=== PATIENT | female | born 1955 | race Caucasian/White ===

== ENCOUNTER 2018-01-28 07:37 | Observation (INO) | payer BC ==
[2018-01-28 08:32] LABS: #Eosinphils 0.1 thou/uL (0.0-0.7); #Lymphocytes 2.3 thou/uL (1.20-3.40); #Monocytes 0.4 thou/uL (0.11-0.59); #Neutrophils 6.6 thou/uL (1.40-6.50); %Basophils 0.5 % (0.0-1.0); %Lymphocytes 24.2 % (21.0-51.0); %Monocytes 4.6 % (0.0-10.0); %Neutrophils 69.7 % (42.0-75.0); Hemoglobin 13.5 g/dL (12.0-16.0); Mean Corpuscular Hemoglobin 27.9 pg (27.0-31.0); Mean Corpuscular Volume 84.5 fL (78.0-98.0); Mean Platelet Volume 7.9 fL (7.4-10.4); Platelet Count 245 thou/uL (130-400); RBC Distribution Width 12.8 % (11.5-14.5); Red Blood Cell (RBC) Count 4.86 mill/uL (4.20-5.40); White Blood Cell (WBC) Count 9.5 thou/uL (4.8-10.8)
[2018-01-28 08:52] LABS: ALT (SGPT) 25 U/L (8-55); AST (SGOT) 21 U/L (5-34); Albumin 4.6 g/dL (3.4-4.8); Alkaline Phosphatase 89 U/L (40-150); Anion Gap 14 mmol/L (10-20); BUN (Urea Nitrogen) 19 mg/dL (9.8-20.1); Bilirubin, Total 0.3 mg/dL (0.2-1.2); Calc. Creatinine Clearance 0 mL/min (70-130); Calcium 9.9 mg/dL (7.8-10.44); Carbon Dioxide 21 mmol/L (23-31); Chloride 107 mmol/L (98-107); Estimated GFR-MDRD 79; Glucose 98 mg/dL (80-115); Potassium 3.9 mmol/L (3.5-5.1); Protein, Total 7.6 g/dL (6.0-8.3); Sodium 138 mmol/L (136-145)
[2018-01-28] MEDS ORDERED: Pantoprazole 40 MG VIAL ONE (09:40)
[2018-01-28 09:48] LABS: Bilirubin Negative (Negative); Blood, Urine Negative (Negative); Clarity CLEAR (Clear); Glucose, Urine (Dipstick) Negative (Negative); Leukocyte Trace (Negative); Nitrite Negative (Negative); Protein, Urine (Dipstick) Negative (Neg-Trace); Specific Gravity, Urine 1.007 (1.002-1.036); Urobilinogen 0.2 mg/dL (0.2-1.0)
--- NOTE | 2018-01-28 09:49 | CT ---
CT ABDOMEN AND PELVIS WITH IV CONTRAST: HISTORY: A 62-year-old female with abdominal pain. Blood in the stools. FINDINGS: The lung bases are clear. The liver demonstrates diffusely decreased attenuation compared to the spl een, consistent with fatty infiltration. No calcified gallstones are seen. The spleen, pancreas, ad renal glands, and right kidney are normal. A tiny low-density lesion in the left renal cortex is lik ina a cyst. No free air, free fluid, or lymphadenopathy is seen in the abdomen or pelvis. A normal-appearing jazmin endix is present. The small bowel loops are not abnormally dilated. The transverse, descending, and rectosigmoid colon are decompressed. There is fecal material in the right colon. Vascular calcific ations are present without evidence of aneurysmal dilatation of the abdominal aorta. There are degen erative changes in the spine. Absence of oral contrast reduces the sensitivity of the exam for evalu ation of bowel. Uterus is present. IMPRESSION: 1. No evidence of acute process. 2. Fatty liver. 3. Tiny left renal cyst. 4. Given the history of blood in the stools, further evaluation with colonoscopy is recommended. POS: MIMI
[2018-01-28 09:50] LABS: Bacteria/HPF None Seen HPF (None Seen); Hyaline Casts/LPF 0-3 HYALINE CAST LPF (0-3 Hyaline); RBC/HPF 0-3 HPF (0-3); Squamous Epithelial None Seen HPF (0-3); WBC/HPF None Seen HPF (0-3)
[2018-01-28] MEDS ORDERED: Acetaminophen 325 MG TAB PO PRN (10:04)
[2018-01-28] MEDS ORDERED: Milk Of Magnesia 30 ML UDCUP PO PRN (10:04)
[2018-01-28 11:54] VITALS: BMI 30.3
[2018-01-28 12:13] LABS: Hemoglobin 13.1 g/dL (12.0-16.0)
[2018-01-28] MEDS ORDERED: ISOVUE-370 76%-LOCM 1 ML ONE (12:38)
[2018-01-28] MEDS ORDERED: Dextrose 5 %-0.45 % NaCl 1,000 ML IV SCH (13:00)
[2018-01-28] MEDS: GoLYTELY 4,000 ml Bottle PO SCH (16:31)
[2018-01-28] MEDS: Sodium Chloride 0.9% 1,000 ML IV SCH (16:32)
--- NOTE | 2018-01-28 17:18 | HP ---
PRIMARY CARE PHYSICIAN: Juan Ramon Christian MD PRESENTING COMPLAINT: Blood in my stools. HISTORY OF PRESENT ILLNESS: Mr. Teresa Liu is a 62-year-old female with a past medical history of migraine headaches, who presents to the emergency room with complaints of bloody stools. She reports she had an initial episode yesterday and then at least 2 more episodes earlier today and another in the emergency room. She reports she uses Aleve, but no other medications. She is not on aspirin or blood thinners. She has not had previous episodes before. She reports these episodes are with abdominal pressure, but not overt pain. She has no family history of colon cancer. She has no nausea, vomiting, diarrhea or constipation. She has no urinary symptoms. There is no history of fever or chills. She has had two colonoscopies in the past initially about 5 years ago where 1 polyp was removed and the last one this past May, but she had 3 polyps. PAST MEDICAL HISTORY: Migraine headaches. PAST SURGICAL HISTORY: No previous surgical procedures. FAMILY HISTORY: Reviewed and noncontributory. SOCIAL HISTORY: She does not smoke cigarettes, drink alcohol or use illicit drugs. ALLERGIES: She reports having allergic reaction to Rocephin antibiotic, which she cannot remember the name. She developed hives. REVIEW OF SYSTEMS: All systems reviewed and negative except as stated in the HPI. HOME MEDICATION: Imitrex 100 mg. PHYSICAL EXAMINATION: GENERAL: The patient is hemodynamically stable. Not in acute distress. She is sitting up comfortably in bed. HEENT: Normocephalic, atraumatic. Not pale, anicteric. Moist mucous membranes. PERRLA, EOMI. NECK: Supple, full range of movements. RESPIRATORY: Vesicular breath sounds bilaterally. No wheezes or rales. CARDIOVASCULAR: S1, S2 only. Regular rate and rhythm. No murmurs, rubs or gallops. ABDOMEN: Soft, nontender, nondistended. Bowel sounds normoactive. No hepatosplenomegaly. NEUROLOGIC: Alert and well oriented to time, place and person. No focal deficits. MUSCULOSKELETAL: No edema. SKIN: Warm, dry, well-perfused. No rashes or lesions. LABORATORY DATA: CBC and CMP were largely unremarkable, urinalysis as well. Stool for occult blood was positive. IMAGING: CT abdomen showed no acute process, recommended colonoscopy. ASSESSMENT: 1. Lower gastrointestinal bleeding. 2. Migraine headaches. PLAN: The patient has lower GI bleed and differentials at this moment include hemorrhoids, AVMs, diverticulosis, anal fissure. No previous history of IBD or inflammatory bowel disease, so this is less likely on the differential. She has been admitted to the medical floor. She will be given IV fluids, made n.p.o. and GI consulted for possible colonoscopy. Blood has been typed and screened. She will also have a hemoglobin trended and her vital signs monitored closely. Deep venous thrombosis prophylaxis, SCDs. CODE STATUS: FULL CODE. MTDD
[2018-01-28 20:00] LABS: Hemoglobin 13.5 g/dL (12.0-16.0)
--- NOTE | 2018-01-28 20:57 | CON ---
DATE OF CONSULTATION: 01/28/2018 GI CONSULTATION NOTE CHIEF COMPLAINT: Abdominal pain and blood in stool. HISTORY OF PRESENT ILLNESS: Ms. Moore is a 62-year-old woman who last night had a hard stool follo wed by a liquidy brown stool with a little bit of blood when she wiped. She then this morning had lo wer abdominal cramping pain and sweating and passed 3 more liquidy red bloody stools. She has had no nausea or vomiting. No fever. Weight has been stable. Her last dose of sumatriptan and was early yesterday morning around 2:00 a.m. for headache. She has had migraine headaches since she was a chil d. She has received Botox injections for that. PAST MEDICAL HISTORY: Migraine headaches. PAST SURGICAL HISTORY: She had colonoscopy in 03/2017 with 3 adenomas removed. She also had a colon oscopy in 03/2012 with a 7 mm tubulovillous adenoma removed. FAMILY HISTORY: Negative for GI malignancies. SOCIAL HISTORY: No alcohol, tobacco or drugs. ALLERGIES: PENICILLIN. MEDICATIONS: Prior to admission, sumatriptan as needed. REVIEW OF SYSTEMS: Negative x10 systems reviewed except as stated in history of present illness. PHYSICAL EXAMINATION: VITAL SIGNS: Temperature is 99.1, pulse 68, blood pressure 146/73. GENERAL: She is in no acute distress, alert and oriented x3. HEENT: Eyes have no scleral icterus. Oropharynx is clear without lesions. NECK: No cervical or supraclavicular lymphadenopathy. LUNGS: Clear to auscultation bilaterally. HEART: Regular rate and rhythm without murmur. ABDOMEN: Soft. There is mild tenderness in the lower abdomen without guarding. Bowel sounds are pr esent. EXTREMITIES: No lower extremity edema. LABORATORY DATA: Her hemoglobin is 13.1. White blood cell count 9.5, platelets 245. Creatinine 0.7 5, bilirubin 0.3, AST 21, ALT 25, alkaline phosphatase 89 and lipase 40. IMAGING: She had a CT scan of the abdomen and pelvis in the emergency room, which showed evidence of fatty liver. Vascular calcifications were noted in the abdominal aorta. IMPRESSION: Ischemic colitis. This was likely triggered by the sumatriptan. This is likely further exacerbated potentially by atherosclerotic disease given that this was seen in the abdominal aorta. She could have been dehydrated as well. She had a colonoscopy in 03/2017 which did not show signifi cant diverticulosis. There were 3 small to moderate sized adenomas removed, but certainly no reason to think that she would have developed colon cancer since then. No evidence that this would be diver ticular bleeding. Hemorrhoidal bleeding is unlikely as she had diarrhea and lower abdominal pain wit h this as well. Repeat endoscopy or colonoscopy likely would not be necessary given no obvious etiol ogy for her symptoms based on clinical history. However, given her difficult to control migraines an d need for the sumatriptan, we will plan colonoscopy to verify the diagnosis as this will exclude sum atriptan as a potential medication for treatment of her migraines along with the entire class of medi cines. RECOMMENDATIONS: 1. Colonoscopy tomorrow to confirm diagnosis of ischemic colitis or excluded. 2. Avoid sumatriptan. 3. We will give additional IV fluids.
[2018-01-29] MEDS: Sodium Chloride 0.9% 1,000 ML IV SCH ×3 (00:38→17:19)
[2018-01-29 05:22] LABS: Hemoglobin 12.9 g/dL (12.0-16.0); Mean Corpuscular HGB CONC 33.2 g/dL (32.0-36.0); Mean Corpuscular Hemoglobin 28.7 pg (27.0-31.0); Mean Corpuscular Volume 86.5 fL (78.0-98.0); Mean Platelet Volume 8.1 fL (7.4-10.4); Platelet Count 217 thou/uL (130-400); Red Blood Cell (RBC) Count 4.48 mill/uL (4.20-5.40); White Blood Cell (WBC) Count 7.9 thou/uL (4.8-10.8)
[2018-01-29 05:51] LABS: Anion Gap 13 mmol/L (10-20); BUN (Urea Nitrogen) 9 mg/dL (9.8-20.1); Calc. Creatinine Clearance 105 mL/min (70-130); Carbon Dioxide 24 mmol/L (23-31); Chloride 110 mmol/L (98-107); Estimated GFR-MDRD 86; Glucose 93 mg/dL (80-115); Sodium 143 mmol/L (136-145)
[2018-01-29] MEDS: GoLYTELY 4,000 ml Bottle PO SCH (07:40)
[2018-01-29] MEDS ORDERED: Lidocaine 1% PF 5 ML VIAL ONE (13:29)
[2018-01-29] MEDS ORDERED: PROPOFOL 200 MG/20 ML VIAL ONE (13:29)
[2018-01-29] MEDS ORDERED: Promethazine HCl 25 MG/ML VIAL SLOW IVP PRN (15:38)
[2018-01-29] MEDS ORDERED: Ondansetron HCl/PF 4 MG/2 ML Vial IVP PRN (15:38)
[2018-01-29] MEDS ORDERED: Promethazine HCl 25 MG/ML VIAL IM PRN (15:38)
[2018-01-29 16:43] VITALS: BP 140/72; TEMP 97.8
--- NOTE | 2018-01-29 18:47 | DIS ---
DATE OF ADMISSION: 01/28/2018 DATE OF DISCHARGE: 01/29/2018 DISCHARGE DIAGNOSES: Lower gastrointestinal bleed, migraine headaches. HISTORY OF PRESENT ILLNESS/HOSPITAL COURSE: Ms. Alexa Moore is a 62-year-old female with a his tory of migraine headache, who presented to the emergency room with bloody stool. She reported 3 epi sodes of bloody stools which were described as 3 episodes of bloody stools. She reports that she usu ally is on no other medications. She was not on aspirin or blood thinners. No previous episodes in the past and reported episodes were associated with abdominal pressure, but no pain. No family histo ry of colon cancer. She had no other gastrointestinal or urinary symptoms. No fevers or chills. He r last colonoscopy was last March, which she had 3 polyps removed and before that she has had a colo noscopy about 5 years ago where they had 1 polyp removed. She was admitted to the hospital for obser vation and possible colonoscopy, started on IV hydration and made n.p.o. She was seen by Dr. Nikko cline nd he had a colonoscopy done which showed no emergent findings. The patient was then discharged home to follow up with GI and her primary care physician. DISCHARGE MEDICATIONS: None. PHYSICAL EXAMINATION: She was seen and examined on the day of discharge. VITAL SIGNS: Temperature 98.4 degrees Fahrenheit, pulse rate 65, respiratory rate 20, oxygen saturat ion 97% on room air, blood pressure 127/59. GENERAL: Not in acute distress. She is sitting comfortably in bed. HEENT: Not pale, anicteric. Moist mucous membranes. PERRLA. NECK: Supple, full range of movement. No JVD. CARDIOVASCULAR: S1, S2 only. No murmurs, rubs or gallops. Regular rate and rhythm. RESPIRATORY: Vesicular breath sounds bilaterally. No wheezes, rales or rhonchi. ABDOMEN: Soft, nontender, nondistended. Bowel sounds normoactive. No hepatosplenomegaly. NEUROLOGIC: Alert and well oriented to time, place and person. No focal deficits. PSYCHIATRIC: Normal mood and affect. SKIN: Warm, dry, and well perfused. No rashes or lesions. MUSCULOSKELETAL: No edema. LABORATORY DATA: WBC 7.9, hemoglobin 12.9, platelet count 217. Sodium 143, potassium 4.0, chloride 110, carbon dioxide 24, anion gap 13, BUN 9, creatinine 0.69, glucose 93, calcium 9.0. IMAGING: Abdomen and pelvis CT, which showed no evidence of acute process, but showed a fatty liver. A tiny left renal cyst and vascular calculated calcification without evidence of aneurysmal denerva tion of the abdominal aorta. CONSULTS: Gastroenterology. CONDITION AT DISCHARGE: Stable and improved. PROCEDURES: Colonoscopy. DIET: Regular. CARE GOALS: Follow up with GI and primary care physician after discharge. ACTIVITY: To resume as digoxin as tolerated. Discharge time 55 minutes including chart review and documentation.
--- NOTE | 2018-01-29 21:03 | OP ---
PREOPERATIVE DIAGNOSIS: Gastrointestinal bleed. PROCEDURE IN DETAIL: After informed consent was obtained, the patient placed in the left lateral dec ubitus position. Anesthesia was administered per the Anesthesia Department. Forward-viewing endosco pe was inserted into the rectum after perianal inspection and rectal exam and passed to the cecum wit h ease. The cecum, ileocecal valve, and appendiceal orifice were normal. The prep was excellent. T he ascending and transverse were normal. In the descending colon from approximately 45 cm to 30 cm, area of patchy ulceration and erythema consistent with ischemic colitis was noted. This area was bio psied. The remainder of the sigmoid and rectum were normal. Retroflexion in the rectum showed inter nal hemorrhoids. ASSESSMENT: 1. Probable ischemic colitis. 2. Internal hemorrhoids. 3. Otherwise normal colonoscopy. RECOMMENDATIONS: 1. Resume diet. 2. Stable for discharge from gastrointestinal standpoint.
== END 2018-01-29 17:28 | disposition home or self-care (01) ==
LOC: ERS 07:37 → 2SW 11:29
PROVIDERS: ADMIT Internal Medicine; ATTEND Internal Medicine Gastroenterology
PROC: 0DBM8ZX Excision of Descending Colon, Via Natural or Artificial Opening Endoscopic, Diagnostic (ICD-10-PCS; principal; 2018-01-29)
DX: S36.50 Unspecified injury of colon (principal); G43.909 Migraine, unspecified, not intractable, without status migrainosus; K64.8 Other hemorrhoids; Z88.0 Allergy status to penicillin
CPT/HCPCS: 36415; 74177; 80048; 80053; 81003; 81015; 82274; 83690; 85025; 85027; 86850; 86900; 86901; 88305; 96361; 96374; C9113; G0378; J2001; J2704